=== PATIENT | female | born 1960 | race Caucasian/White ===

== ENCOUNTER 2016-11-13 08:43 | Inpatient (IN) | payer MEDICAID ==
[~2016-11-13 08:43] MED LIST: BUPIVACAINE/EPI 0.5% 30 ML SDV ONE; ceFAZolin 2 GM/DEXTROSE 100 ML IV ONE
[2016-11-13] MEDS ORDERED: LIDOCAINE 1% 5 ML SDV ID PRN (09:19)
[2016-11-13] MEDS ORDERED: LR 1,000 ML IV ONE (09:19)
[2016-11-13 09:43] LABS: % IMMATURE GRANULYOCYTES 0.3 % (0.0-1.1); ABSOLUTE IMMATURE GRANULOCYTES 0.03 10^3/uL (0.00-0.10); ADD DIFF? NO; ADD MORPH? NO; ADD SCAN? NO; ATYPICAL LYMPHOCYTE FLAG 0 (0-99); FRAGMENT RBC FLAG 0 (0-99); HEMATOCRIT 39.8 % (38.0-47.0); HEMOGLOBIN 13.9 g/dL (12.6-16.3); LEFT SHIFT FLG 0 (0-99); LIPEMIA HEMOLYSIS FLAG 90 (0-99); MEAN CELL HEMOGLOBIN 31.3 pg (27.9-34.1); MEAN CELL HEMOGLOBIN CONCENTR. 34.9 g/dL (32.4-36.7); MEAN CELL VOLUME 89.6 fL (81.5-99.8); MEAN PLATELET VOLUME 9.6 fL (8.7-11.7); PLATELET CLUMPS FLAG 0 (0-99); PLATELET COUNT 283 10^3/uL (150-400); RED BLOOD CELL COUNT 4.44 10^6/uL (4.18-5.33); RED CELL DISTRIBUTION WIDTH 13.4 % (11.5-15.2)
[2016-11-13] MEDS ORDERED: CEFAZOLIN 2 GM/DEXTROSE/100 ML BAG IV ONE (10:37)
[2016-11-13] MEDS ORDERED: PROPOFOL 200 MG/20 ML VIAL ONE (11:17)
[2016-11-13] MEDS ORDERED: fentaNYL 100 MCG/2 ML INJ ONE ×3 (11:17→17:39)
[2016-11-13] MEDS ORDERED: ROCURONIUM 50 MG/5 ML VIAL ONE (11:18)
[2016-11-13] MEDS ORDERED: LIDOCAINE 2% 100 MG/5 ML SYR IVP ONE (11:18)
[2016-11-13] MEDS ORDERED: MIDAZOLAM 2 MG/2 ML VIAL ONE (12:00)
[2016-11-13] MEDS ORDERED: DEXAMETHASONE 4 MG/ML VIAL ONE (15:10)
[2016-11-13] MEDS ORDERED: SUGAMMADEX SODIUM 200 MG/2 ML VIAL IVP ONE (15:10)
[2016-11-13] MEDS ORDERED: ONDANSETRON 4 MG/2 ML VIAL ONE (15:10)
[2016-11-13] MEDS ORDERED: HYDROmorphONE/DILAUDID 2 MG/ML SYR ONE ×2 (15:13→15:44)
[2016-11-13] MEDS ORDERED: ONDANSETRON 4 MG/2 ML VIAL IVP PRN (15:43)
[2016-11-13] MEDS ORDERED: NARCOTIC DRIP BAG-TOTAL ALL TYPES EP PRN (15:43)
[2016-11-13] MEDS ORDERED: NALOXONE HCL 0.4 MG/ML INJ IVP PRN (15:43)
[2016-11-13] MEDS ORDERED: D5W 1/2 NS W/ 20 KCl/L 1,000 ML IV SCH (16:00)
--- NOTE | 2016-11-13 16:06 | POSTOPPROG ---
Post Op Note Date of Operation: 11/13/16 Surgeon: Naga Pollard Mica Inspector: Robin Gutierrez Anesthesiologist: Dr Youssef Anesthesia: Epidural, GET(General Endotracheal) Pre-op Diagnosis: right lung mass Post-op Diagnosis: same Indication: right lung mass Procedure: VATS, right thoracotomy, right upper lobectomy, lypmh node biopsy Findings: right lung mass Inf/Abcess present in the surg proc area at time of surgery?: No EBL: 100-500 Drains: Other (2 chest tubes) Specimen(s): right lung mass, hilar nodes, right upper lobe
--- NOTE | 2016-11-13 16:16 | DX ---
Portable AP chest. 11/13/2016 at 1603 History: s/p right thoracotomy, 2 chest tubes Comparison study: Chest CT September 11, 2016. Findings: Surgical features of a right upper lobectomy are identified with 2 right thoracostomy tubes and volume loss in the right hemithorax. Small right apical pneumothorax is present. There is centra l opacity within the right lung which may represent postsurgical hematoma or atelectasis. Minimal ate lectasis of the left lower lobe. Heart size is normal. No significant pleural effusion. Impression: Status post right upper lobectomy with central atelectasis/hematoma and small right apica l pneumothorax. [address] tubes in place.
[2016-11-13] MEDS ORDERED: HYDROmorphONE/DILAUDID 1 MG/ML SYR ONE (17:34)
[2016-11-13] MEDS ORDERED: fentaNYL 100 MCG/2 ML INJ IVP PRN (17:41)
[2016-11-13] MEDS: CYCLOSPORINE 0.05% 1 EACH BOX EACHEYE SCH (17:50)
[2016-11-13] MEDS: HYDROmorphONE/DILAUDID 1 MG/ML SYR IVP PRN ×2 (17:51→18:14)
[2016-11-13] MEDS: NICOTINE 14 MG/24 HR PATCH TD SCH (18:15)
[2016-11-13] MEDS: ONDANSETRON 4 MG/2 ML VIAL IVP PRN (18:24)
--- NOTE | 2016-11-13 19:35 | POSTANESTH ---
Post Anesthetic Evaluation Cardiovascular Status: Normal, Stable Respiratory Status: Normal, Stable Level of Consciousness/Mental Status: Can Participate in Eval Pain Control: Inadeq, Add Tx Required Nausea/Vomiting Control: Adequate, Prn Tx Ordered Complications Possibly Related to Anesthesia: None Noted Notes: POD#0 Called to bedside- epidural catheter dislodged. Likely during multiple repositioning events. Replaced catheter T7-8 interspace. TITA 6, catheter at 11 cm at skin. Dosed with 5 cc lidocaine 2%. Level tests T4-L2. Pt much more comfortable.
[2016-11-13] MEDS ORDERED: ALPRAZolam 0.5 MG TAB PO SCH (21:00)
[2016-11-13] MEDS ORDERED: LORazepam 0.5 MG TAB PO SCH (21:00)
[2016-11-14] MEDS: HYDROmorphONE/DILAUDID 1 MG/ML SYR IVP PRN ×3 (04:38→22:16)
[2016-11-14 04:50] LABS: HEMATOCRIT 33.5 % (38.0-47.0); HEMOGLOBIN 11.2 g/dL (12.6-16.3)
[2016-11-14] MEDS: NICOTINE 14 MG/24 HR PATCH TD SCH (07:40)
[2016-11-14] MEDS ORDERED: KETOROLAC 30 MG/1 ML SDV IVP ONE (08:30)
[2016-11-14] MEDS ORDERED: LORazepam 0.5 MG TAB PO PRN (08:31)
[2016-11-14] MEDS: CYCLOSPORINE 0.05% 1 EACH BOX EACHEYE SCH (08:35)
[2016-11-14] MEDS: REGARDING ANTICOAG MISC SCH (08:36)
[2016-11-14] MEDS: DC NARCS MISC SCH (08:36)
--- NOTE | 2016-11-14 09:20 | DX ---
Chest, One View Portable November 14, 2016, at 0618 Hours History: Right chest tubes and pneumothorax. Right thoracotomy. Comparison: November 13, 2016. Findings: Two chest tubes in the right lung apex. Small right apical pneumothorax possibly slightly increased in size. Right inferolateral chest wall skin tommy. Tenting of the right hemidiaphragm. R ight pericardiac density appears less prominent suggesting improved aeration of the right lung. Surgi lore clips in the right suprahilar region. Left lung is clear. Heart is normal in size. Resolving left lower lobe subsegmental atelectasis. Impression: 1. Small right apical pneumothorax possibly slightly increased in size. 2. Improved aeration of the remaining right lung.
[2016-11-14] MEDS: KETOROLAC 15 MG/1 ML SDV IVP SCH ×2 (11:09→17:12)
[2016-11-14] MEDS: ALBUTEROL 3 ML DEYVIAL IH SCH ×3 (12:18→22:31)
--- NOTE | 2016-11-14 13:08 | SOAPPROG ---
SOAP Progress Note Assessment/Plan: Assessment: 55yo female s/p R upper lobe lobectomy, cancer positive, full path pending. Epidural placed again last evening after became dislodged. Pain control better after new epidural last night. tolerating regular diet. PE awake alert comfortable Chest 2 right sided chest tubes in place, leak present, CTA B/L abdomen soft nontender Plan: continue chest tubes to suction continue epidural per anesthesia 11/14/16 13:05 Objective: Vital Signs Temp Pulse Resp BP Pulse Ox 36.9 C 99 20 98/44 L 97 11/14/16 07:00 11/14/16 11:00 11/14/16 11:00 11/14/16 11:00 11/14/16 11:00 Laboratory Results 11/14/16 04:40 11/13/16 11/14/16 11/15/16 05:59 05:59 05:59 Intake Total 2721.9 Output Total 2013 Balance 707.9 ICD10 Worksheet Patient Problems: Problems Problem Status Diagnosed Lung cancer Acute - ICD10 Problem Qualifiers (1) Lung cancer
[2016-11-14] MEDS: ONDANSETRON 4 MG/2 ML VIAL IVP PRN (19:33)
[2016-11-14] MEDS: fentaNYL 4MCG/ML/BUP 0.1% in 100ML NS EP SCH (22:17)
[2016-11-15] MEDS: KETOROLAC 15 MG/1 ML SDV IVP SCH ×4 (00:19→18:00)
[2016-11-15] MEDS: ALBUTEROL 3 ML DEYVIAL IH SCH ×4 (05:55→20:37)
[2016-11-15] MEDS: HYDROmorphONE/DILAUDID 1 MG/ML SYR IVP PRN (06:13)
--- NOTE | 2016-11-15 09:28 | SOAPPROG ---
SOAP Progress Note Assessment/Plan: Assessment: 55 yo F POD#2 s/p thoracotomy and RUL lobectomy Path pending Epidural. Begin lovenox - this will need to be held for epidural removal ( likely thursday) R chest tube with persistent air leak. To suction CXR tomorrow Pain controlled Aggressive pulmonary hygiene - IS, PT Regular diet Seen with Dr. Pollard S: has not attempted to get out of bed. Pain is controlled. O: Lying in bed, comfortable, NAD CTAB RRR Right chest dressing intact Right chest tube with serosanguineous fluid. Positive air leak Objective: Vital Signs Temp Pulse Resp BP Pulse Ox 37.3 C 83 23 H 120/48 L 95 11/14/16 20:00 11/15/16 06:00 11/15/16 06:00 11/15/16 06:00 11/15/16 06:00 Laboratory Results 11/14/16 04:40 11/14/16 11/15/16 11/16/16 05:59 05:59 05:59 Intake Total 2721.9 3514.1 Output Total 2013 2489 Balance 707.9 1024.1 ICD10 Worksheet Patient Problems: Problems Problem Status Diagnosed Lung cancer Acute
--- NOTE | 2016-11-15 09:47 | POSTANESTH ---
Post Anesthetic Evaluation Cardiovascular Status: Normal, Stable, Similar to Pre-Op Cond Respiratory Status: Normal, Stable, Similar to Pre-op Cond. Level of Consciousness/Mental Status: Can Participate in Eval Pain Control: Adequate, Prn Tx Ordered Nausea/Vomiting Control: Adequate, Prn Tx Ordered Complications Possibly Related to Anesthesia: None Noted Notes: POD 2 s/p thoracotomy. PCEA day 2. Pain control is good. Back site c/d/i, no e/e/e. Pt notes one episode of pruritis which responded well to benadryl. Plan Continue PCEA as ordered. Maintain PCEA while chest tubes are in place, will hold infusion and then D/C after pt transitions to PO meds. Pt with good LE strength, may ambulate with assistance. May d/c vazquez. Please hold lovenox 12 hr prior to planned catheter discharge. Thank you for this interesting consult, please call with any questions or concerns.
[2016-11-15] MEDS: D5W 1/2 NS W/ 20 KCl/L 1,000 ML IV SCH ×2 (10:18→22:13)
[2016-11-15] MEDS: CYCLOSPORINE 0.05% 1 EACH BOX EACHEYE SCH (10:19)
[2016-11-15] MEDS: ENOXAPARIN 40 MG/0.4 ML SYR SC SCH (10:19)
[2016-11-15] MEDS: DC NARCS MISC SCH (10:20)
[2016-11-15] MEDS: REGARDING ANTICOAG MISC SCH (10:20)
[2016-11-15] MEDS: NICOTINE 14 MG/24 HR PATCH TD SCH (10:20)
--- NOTE | 2016-11-15 14:53 | GOP ---
[f rep st] OPERATIVE REPORT DATE OF OPERATION: SURGEON: Naga Pollard MD [employer] DEVELOPER: Robin Lovett PA-C and Herrera Novoa MD. ANESTHESIOLOGIST: Dr. Youssef. PREOPERATIVE DIAGNOSIS: A right enlarging lung mass. POSTOPERATIVE DIAGNOSIS: Adenocarcinoma of the right upper lobe. PROCEDURE PERFORMED: 1. Thoracoscopy and wedge biopsy right upper lobe. 2. Thoracotomy and right upper lobectomy. 3. Hilar lymphadenectomy. FINDINGS: Patient was found to have a 1 cm mass in the upper lobe, which was consistent with adenoca rcinoma. Multiple lymph nodes in the area appeared to be benign. Final path is pending. DESCRIPTION OF PROCEDURE: The patient was taken to the operating room where she received satisfactor y general endotracheal anesthesia with a double-lumen endotracheal tube. This was done by Dr. Youssef. She was placed in the left lower decubitus position, prepped and draped in usual sterile fashion. A short incision was made in the 7th intercostal space in the midline, and a trocar was introduced. The thoracoscope was introduced. Adequate visualization was present with the wound being collapsed. Two other trocars were placed higher up in the right chest wall. The lung was then manipulated; how ever, it was impossible to find this 1 cm mass which did not pucker the surface of the lung. It coul d not be palpated with the laparoscopic instruments. A short mini thoracotomy incision was made in t he 4th intercostal space. A small rib airport ramp supervisor was used. The upper lobe of the lung was palpated as was the superior segment of the lower lobe, and a small nodule was palpable near the fissure between the superior segment and the upper lobe. A wedge biopsy was taken of this nodule using Endo-CORRINE sta plers. This was sent for frozen section and was returned as adenocarcinoma. It was then elected to proceed with a right upper lobectomy. The incision was somewhat enlarged. A larger rib airport ramp supervisor was used. The pleura over the hilum was incised, and the anterior vessels to the right upper lobe were dissected free and isolated and divided with a vascular stapler. The fissure was developed between t he lower lobe and the upper lobe and branches to the lower lobe were preserved. The posterior branch es to the upper lobe were isolated and divided. Vessels to the middle lobe were also preserved. The fissures were completed by division with the CORRINE staplers. A portion of the superior segment was ta linnette with the upper lobe since they were somewhat fused together near where the tumor was. After the arterial supply was controlled, the upper lobe vein was dissected free and divided with an Endo-CORRINE s tapler, preserving the venous flow to the middle lobe. All other connections between the lobes were then divided with a stapler until the bronchus was the only remaining structure. This was cross clam ped, and there was good visualization of the middle and lower lobes. It too was then divided with [facility] CORRINE stapler. The specimen was removed. Suture lines were tested under water, and the bronchus enrique eared to be air tight. There was a small parenchymal leak from the lung near one of the fissures, wh ich was controlled with some hemoclips. The wound was thoroughly irrigated. Hemostasis was assured. Several hilar and interlobar nodes were dissected free and sent out for path on a permanent basis. Hemostasis there was obtained with electrocautery and/or hemoclips. Chest was then closed in a meliza dard fashion. Two #28 chest tubes were brought in through the previous trocar sites and secured to [facility] skin with silk suture. Holes were drilled in the lower rib, and pericostal sutures were passed th rough these holes and around the upper rib which was then approximated with the rib approximator tania zuleyma. Sutures were tied. Hemostasis appeared to be adequate. The muscular layers were then sutured c losed with 0 Vicryl suture approximating the split in the serratus muscle and a small portion of the latissimus muscle that had been divided. Subcu was then closed with a running 2-0 Vicryl, and the sk in with skin tommy. The wounds were dressed. She tolerated the procedure well and was taken to [facility] recovery room in good condition. /[id number]/MODL
--- NOTE | 2016-11-15 19:04 | GCON ---
[f rep st] CONSULTATION PULMONARY CRITICAL CARE CONSULTATION. REASON FOR CONSULTATION: Intensive care unit evaluation and management following a right upper lobec roxy. HISTORY: The patient is known to me from the office. She presented with an enlarging pulmonary nodu le in the right upper lobe suspicious for lung cancer. She was referred to Dr. Pollard. Right upper l obectomy was performed on November 13 and was without significant complications. Thoracotomy and righ t upper lobectomy was done, hilar lymphadenopathy was noted, biopsies were obtained. The primary was consistent with adenocarcinoma on frozen sections and lymph nodes appeared to be biopsied . She was returned to the intensive care unit in stable condition. She has done well postoperatively. Pain i s her main issue postop. She is on 2 L. She has been afebrile. She does have a loose cough product christopher of whitish mucus. PAST MEDICAL HISTORY: Largely unremarkable. She has some anxiety. She was on Xanax p.r.n. and iram zepam to help her sleep at night. DRUG ALLERGIES: VARENICLINE TARTRATE. FAMILY HISTORY: Positive for A GI malignancy in her father. SOCIAL HISTORY: , she started smoking at 15 and was smoking up to the time of admission. Sig nificant alcohol is denied. REVIEW OF SYSTEMS: Negative except as mentioned above. PHYSICAL EXAMINATION: GENERAL: Reveals a pleasant woman who is sitting up in a chair. Chest tubes are in place on the right side. A small air leak is present. VITAL SIGNS: Blood pressure is 110/50, heart rate 80 with sinus rhythm on the monitor. Respiratory rate is 20. On 2 L, saturations are 95%. She is afebrile. HEENT: Remarkable for the nasal cannula being in place. Mucous membranes are moist. There is no jugular venous distention. PULMONARY: Th e chest reveals coarse breath sounds and rales on the right side, a few rales at the left base. Ther e is some central airway congestion. HEART: Regular in rate and rhythm, without significant murmur or gallop. ABDOMEN: Soft, nontender. Bowel sounds are present. : A Gottlieb catheter is in place. Urine output has been good. NEUROLOGIC: Examination is nonfocal, intact. EXTREMITIES: Without e stacy, cords, or tenderness. DATA BASE: Chest x-ray yesterday showed a very small persistent right apical pneumothorax with some volume loss on the right. The left lung is clear. Chest tubes were in good position. LABORATORY: White blood cell count 11,000 on admission, hematocrit 39, down to 33 yesterday. Platel ets are within normal limits. No chemistries obtained. Final pathology is pending. ASSESSMENT: 1. Adenocarcinoma of the right upper lobe, status post resection. Formal pathology is pending. 2. Chest pain, secondary to #1. Two chest tubes are in place. She is doing well, progressing well. Pain is appropriately managed. 3. Acute blood-loss anemia. Hematocrit will be followed. No significant ongoing bleeding is noted. 4. DVT prophylaxis: On enoxaparin. 5. GI prophylaxis: None required, eating. PLAN AND RECOMMENDATIONS: The patient will be monitored in the intensive care unit. Followup x-ray and laboratory values will be obtained in the a.m. She can transition to step-down unit status and w ill be kept in the intensive care unit. Appropriate pain control will be maintained. Current medici jessica will be continued. Further plans and recommendations will be made based on her progress over the next 12 to 24 hours. /[id number]/MODL
[2016-11-15] MEDS: ONDANSETRON 4 MG/2 ML VIAL IVP PRN (20:56)
[2016-11-16] MEDS: KETOROLAC 15 MG/1 ML SDV IVP SCH ×5 (01:50→23:14)
[2016-11-16] MEDS: HYDROmorphONE/DILAUDID 1 MG/ML SYR IVP PRN (03:00)
[2016-11-16] MEDS: fentaNYL 4MCG/ML/BUP 0.1% in 100ML NS EP SCH ×3 (04:05→23:15)
[2016-11-16] MEDS: D5W 1/2 NS W/ 20 KCl/L 1,000 ML IV SCH (04:05)
[2016-11-16 04:27] LABS: % IMMATURE GRANULYOCYTES 0.4 % (0.0-1.1); ABSOLUTE IMMATURE GRANULOCYTES 0.03 10^3/uL (0.00-0.10); ADD DIFF? NO; ADD MORPH? NO; ADD SCAN? NO; ATYPICAL LYMPHOCYTE FLAG 0 (0-99); FRAGMENT RBC FLAG 0 (0-99); HEMATOCRIT 30.5 % (38.0-47.0); HEMOGLOBIN 10.1 g/dL (12.6-16.3); LEFT SHIFT FLG 0 (0-99); LIPEMIA HEMOLYSIS FLAG 80 (0-99); MEAN CELL HEMOGLOBIN 32.3 pg (27.9-34.1); MEAN CELL HEMOGLOBIN CONCENTR. 33.1 g/dL (32.4-36.7); MEAN CELL VOLUME 97.4 fL (81.5-99.8); MEAN PLATELET VOLUME 9.7 fL (8.7-11.7); PLATELET CLUMPS FLAG 0 (0-99); PLATELET COUNT 175 10^3/uL (150-400); RED BLOOD CELL COUNT 3.13 10^6/uL (4.18-5.33); RED CELL DISTRIBUTION WIDTH 13.3 % (11.5-15.2)
[2016-11-16 04:46] LABS: ANION GAP 4 mEq/L (8-16); CALCIUM 8.2 mg/dL (8.5-10.4); CARBON DIOXIDE 26 mEq/l (22-31); CHLORIDE 107 mEq/L (97-110); CREATININE 0.7 mg/dL (0.6-1.0); GLOMERULAR FILTRATION RATE > 60; GLUCOSE 127 mg/dL (70-100); MAGNESIUM 1.7 mg/dL (1.6-2.3); POTASSIUM 5.2 mEq/L (3.5-5.2); SODIUM 137 mEq/L (134-144)
[2016-11-16] MEDS: ALBUTEROL 3 ML DEYVIAL IH SCH ×4 (05:37→20:01)
--- NOTE | 2016-11-16 08:36 | DX ---
Portable AP chest. 11/16/2016 at 6:17 AM History: s/p RUL lobectomy, R chest tube Comparison study: November 14, 2016 Findings: Surgical features of a right upper lobectomy are again noted, with 2 right chest tubes in p lace, and small right apical pneumothorax. Patchy consolidation central right lung is stable. Left lung is clear. Heart size is normal. Impression: Stable chest post right upper lobectomy.
[2016-11-16] MEDS: CYCLOSPORINE 0.05% 1 EACH BOX EACHEYE SCH (09:18)
[2016-11-16] MEDS: ENOXAPARIN 40 MG/0.4 ML SYR SC SCH ×2 (09:19→10:24)
[2016-11-16] MEDS: NICOTINE 14 MG/24 HR PATCH TD SCH ×2 (09:19→09:22)
[2016-11-16] MEDS: DC NARCS MISC SCH (09:20)
[2016-11-16] MEDS: REGARDING ANTICOAG MISC SCH (09:20)
--- NOTE | 2016-11-16 10:30 | SOAPPROG ---
SOAP Progress Note Assessment/Plan: Assessment: 55 yo F POD#3 s/p thoracotomy and RUL lobectomy Path pending Pain control - Epidural. Hold lovenox 12h prior to planned epidural removal CXR with R apical ptx. Continue CT to suction Air leak resolved today Aggressive pulmonary hygiene - IS, cough/deep breath, PT Regular diet Seen with Dr. Novoa S: Up to the chair several times yesterday. Pain in the right shoulder, which she had prior to surgery. getting IS to 750 O: Lying in bed, comfortable, NAD Clear anteriorly RRR right chest incision clean, dry and intact without evidence of infection Right chest tube with serosanguineous fluid. no evidence of air leak today Objective: Vital Signs Temp Pulse Resp BP Pulse Ox 37.3 C 77 18 91/52 L 98 11/16/16 08:00 11/16/16 08:00 11/16/16 08:00 11/16/16 08:00 11/16/16 08:00 Laboratory Results 11/16/16 04:21 11/16/16 04:21 11/15/16 11/16/16 11/17/16 05:59 05:59 05:59 Intake Total 3514.1 3160.1 535 Output Total 4590 9965 Balance 1024.1 -194.9 535 ICD10 Worksheet Patient Problems: Problems Problem Status Diagnosed Lung cancer Acute
[2016-11-16] MEDS: NS 1,000 ML IV SCH (10:31)
--- NOTE | 2016-11-16 12:43 | SOAPPROG ---
SOAP Progress Note Assessment/Plan: Assessment: Right upper lobe lesion: adenocarcinoma. Status post right upper lobectomy. Final pathology pending. COPD: Mild. On albuterol. Postoperative chest pain, epidural catheter in place. DVT prophylaxis: Enoxaparin. Will need to be held prior to pulling epidural, probably on Thursday. Metabolic: Potassium rising, will DC from IV. Anemia: Blood loss plus dilutional. Hematocrit 30. No evidence of significant ongoing bleeding. Plan: Continue present care. Chest tubes to suction. Pain control as needed. To a medical-surgical bed when okay with surgery. Subjective: Doing okay. Chest pain persists on the right. Denies significant shortness of breath. Some cough, not able to clear any mucus. Objective: Vital Signs Temp Pulse Resp BP Pulse Ox 37.3 C 86 23 H 112/60 96 11/16/16 08:00 11/16/16 12:00 11/16/16 12:00 11/16/16 12:00 11/16/16 12:00 Laboratory Results 11/16/16 04:21 11/16/16 04:21 11/15/16 11/16/16 11/17/16 05:59 05:59 05:59 Intake Total 3514.1 3160.1 535 Output Total 2490 3355 Balance 1024.1 -194.9 535 CXR: Chest tubes remain in place. Small apical pneumothorax is present, postop changes elsewhere. Physical Exam - Physical Exam General Appearance: alert, no apparent distress EENT: other (Nasal cannula at 3 L) Neck: normal inspection Respiratory: decreased breath sounds (On the right side), rales (Rales at right base), pleural rub (Soft, on the right), other (Chest tubes hooked to suction on the right. No air leak. Decreased drainage), No rhonchi, No wheezing Cardiac/Chest: regular rate, rhythm Abdomen: normal bowel sounds, non-tender, soft Pelvic Exam: other (Gottlieb catheter in place, good urine output) Back: Other (Epidural catheter in place) Skin: normal color, warm/dry Extremities: pedal edema (Trace) Neuro/Psych: no motor/sensory deficits, No cognition abnormalities ICD10 Worksheet Patient Problems: Problems Problem Status Diagnosed Lung cancer Acute
[2016-11-16] MEDS: diphenhydrAMINE 25 MG CAP PO PRN (20:28)
[2016-11-16] MEDS: ALPRAZolam 0.25 MG TAB PO PRN (21:17)
--- NOTE | 2016-11-16 21:34 | POSTANESTH ---
Post Anesthetic Evaluation Cardiovascular Status: Normal, Stable, Similar to Pre-Op Cond Respiratory Status: Normal, Stable, Similar to Pre-op Cond. Level of Consciousness/Mental Status: Can Participate in Eval, Alert and Oriented Pain Control: Adequate, Prn Tx Ordered Nausea/Vomiting Control: Adequate, Prn Tx Ordered Complications Possibly Related to Anesthesia: None Noted Notes: Pt seen and examined. Pain control excellent. C/O R shoulder pain, same as pre -operative discomfort related to rotator cuff injury. Able to ambulate and OOB most of the afternoon. Back site c/d/i, no e/e/e. Denies n/v, pruritis. Plan to continue PCEA until planned CT d/c. Will hold infusion in am=, transition to PO meds and d/c catheter that afternoon. Please hold lovenox 12 hrs prior to planned removal. Thanks for this interesting consult, please don't hesitate to call with any questions or concerns.
[2016-11-17 04:28] LABS: POTASSIUM 4.9 mEq/L (3.5-5.2)
[2016-11-17] MEDS: ALBUTEROL 3 ML DEYVIAL IH SCH ×4 (06:02→21:57)
[2016-11-17] MEDS: KETOROLAC 15 MG/1 ML SDV IVP SCH ×4 (06:12→23:33)
[2016-11-17] MEDS: ERTAPENEM 1 GM in NS 100 ML IV SCH (08:09)
[2016-11-17] MEDS: ENOXAPARIN 40 MG/0.4 ML SYR SC SCH (08:09)
[2016-11-17] MEDS: DC NARCS MISC SCH (08:13)
[2016-11-17] MEDS: NICOTINE 14 MG/24 HR PATCH TD SCH (08:13)
[2016-11-17] MEDS: REGARDING ANTICOAG MISC SCH (08:13)
--- NOTE | 2016-11-17 08:46 | DX ---
Portable AP Upright Chest, 6:08 AM on November 17, 2016 Clinical History: 55-year-old female who underwent a right upper lobectomy and presents for follow-up of chest tube positioning and pneumothorax. Comparison Study: Chest, dated November 16, 2016, at 6:17 AM. Findings: The patient has undergone a right upper lobectomy, and there are thoracotomy skin tommy a long the inferolateral right hemithorax with subcutaneous emphysema. One of the two chest tubes has b een advanced slightly more cephalad into the right apex. There is a small residual right apical pneum othorax. The trachea is slightly deviated to the right, consistent with volume loss. There is a mild upper dextrothoracic curvature. The cardiac size is stable. There is some left basilar subsegmental a telectasis. Impression: Postoperative features following a right upper lobectomy with more pronounced right-sided subcutaneous emphysema, interval repositioning of one of the two chest tubes, and a small residual r ight apical pneumothorax persisting.
--- NOTE | 2016-11-17 09:12 | PDINTPN ---
Rheumatologist Progress Note Assessment/Plan: Assessment/Plan: * Right upper lobe lesion: adenocarcinoma. Status post right upper lobectomy. Final pathology pending. * COPD: Mild. On albuterol. * Postoperative chest pain, epidural catheter in place. * DVT prophylaxis: Enoxaparin. Will need to be held prior to pulling epidural , probably on Thursday. * Metabolic: Potassium rising, will DC from IV. * Pain-okay * Anemia: Blood loss plus dilutional. Hematocrit 30. No evidence of significant ongoing bleeding. * Left basilar atelectasis vs pna -started on abx this am -aggressive pulmonary toilet Subjective: Resting. Pain okay. Breathing easily. Objective: Vital Signs Temp Pulse Resp BP Pulse Ox 37.0 C 81 22 H 114/60 95 11/17/16 07:41 11/17/16 07:41 11/17/16 07:41 11/17/16 07:41 11/17/16 07:41 Laboratory Results 11/16/16 04:21 11/17/16 03:50 11/16/16 11/17/16 11/18/16 05:59 05:59 05:59 Intake Total 3160.1 2189 Output Total 3355 2570 Balance -194.9 -381 CXR-reviewed by myself. Right post-surgical changes. Left basilar atelectasis vs pna Physical Exam - Physical Exam General Appearance: alert, mild distress EENT: PERRL/EOMI, normal ENT inspection Neck: non-tender, full range of motion, supple, normal inspection Respiratory: crackles (bibasilar), prolonged expiration, No respiratory distress , No wheezing Cardiac/Chest: normal peripheral pulses, regular rate, rhythm Peripheral Pulses: 2+: carotid (R), carotid (L), femoral (R), femoral (L), dorsalis-pedis (R), dorsalis-pedis (L) Abdomen: normal bowel sounds, non-tender, soft Pelvic Exam: deferred Rectal: deferred Skin: normal color, warm/dry Neuro/Psych: no motor/sensory deficits, alert, normal mood/affect, oriented x 3 ICD10 Worksheet Patient Problems: Problems Problem Status Diagnosed Lung cancer Acute
[2016-11-17] MEDS: HYDROmorphONE/DILAUDID 1 MG/ML SYR IVP PRN ×2 (10:14→17:57)
[2016-11-17] MEDS: CYCLOSPORINE 0.05% 1 EACH BOX EACHEYE SCH (10:22)
[2016-11-17] MEDS: fentaNYL 4MCG/ML/BUP 0.1% in 100ML NS EP SCH ×2 (11:53→19:39)
--- NOTE | 2016-11-17 12:49 | SOAPPROG ---
SOAP Progress Note Assessment/Plan: Assessment/Plan: 55 Y F s/p RUL lobectomy. Chest tubes still draining. No air leak. Continue to suction. Atelectasis vs PNA. Abx started this am. Respiratory therapy seeing pt. Pulm toilet. Smoking cessation. Pt using nicotine lozenges. Pathology. Final pending. Appears to be adenocarcinoma. Dispo: pending. S: Not much pain or SOB. Says she gets up and walks in room and has sat in chair. No BM. O: gen: alert nad heent: mmm chest: bibasilar crackles cor: rrr abd: soft Wounds: well dressed no air leak 11/17/16 12:49 Objective: Vital Signs Temp Pulse Resp BP Pulse Ox 37.7 C 86 20 124/51 H 94 11/17/16 11:59 11/17/16 11:59 11/17/16 11:59 11/17/16 11:59 11/17/16 11:59 Laboratory Results 11/16/16 04:21 11/17/16 03:50 11/16/16 11/17/16 11/18/16 05:59 05:59 05:59 Intake Total 3160.1 2189 Output Total 3355 2570 Balance -194.9 -381 ICD10 Worksheet Patient Problems: Problems Problem Status Diagnosed Lung cancer Acute
[2016-11-17] MEDS ORDERED: POLYETHYLENE GLYCOL 3350 17 GM PKT PO PRN (12:51)
[2016-11-17] MEDS ORDERED: BISACODYL 10 MG SUPP PR PRN (12:51)
[2016-11-17] MEDS ORDERED: LACTULOSE 20 GM/30 ML UDCUP PO PRN (12:51)
[2016-11-17] MEDS ORDERED: MAGNESIUM HYDROXIDE 30 ML UDCUP PO PRN (12:51)
[2016-11-17] MEDS: ACETAMINOPHEN 325 MG TAB PO PRN (18:09)
[2016-11-17 19:01] LABS: COLOR YELLOW; LEUKOCYTE ESTERASE,URINE 3+ (NEGATIVE); NITRITE,URINE POSITIVE (NEGATIVE)
[2016-11-17 19:10] LABS: MUCUS 1+ /lpf (NONE-1+); RBC,URINE 50-182 /hpf (0-3); WBC,URINE 50-182 /hpf (0-3)
[2016-11-17] MEDS: NS 1,000 ML IV SCH (19:43)
[2016-11-17] MEDS: ALPRAZolam 0.25 MG TAB PO PRN (20:09)
[2016-11-17] MEDS: SENNOSIDES/DOCUSATE SODIUM TAB PO SCH (20:24)
--- NOTE | 2016-11-17 20:47 | SOAPPROG ---
SOAP Progress Note Assessment/Plan: Assessment: FEVER TODAY IS CONCERNING WITH HER SMOKING HISTORY AND CHANGES ON HER CHEST X- RAY. NO OTHER MAJOR SOURCES OF INFECTION ARE LIKELY AT THIS TIME SHE IS NOT MOVING MUCH DESPITE HAVING AN EPIDURAL FOR PAIN CONTROL Plan: FOLLOW-UP CHEST X-RAY / CULTURES / ANTIBIOTICS / CONTINUE VIGOROUS PULMONARY CARE 11/17/16 20:45 Objective: Vital Signs Temp Pulse Resp BP Pulse Ox 37.9 C 88 17 116/59 L 98 11/17/16 20:00 11/17/16 20:00 11/17/16 20:00 11/17/16 20:00 11/17/16 20:00 Laboratory Results 11/16/16 04:21 11/17/16 03:50 11/16/16 11/17/16 11/18/16 05:59 05:59 05:59 Intake Total 3160.1 2189 2900 Output Total 3355 2570 1375 Balance -194.9 -381 1525 ICD10 Worksheet Patient Problems: Problems Problem Status Diagnosed Lung cancer Acute
[2016-11-18] MEDS: KETOROLAC 15 MG/1 ML SDV IVP SCH ×3 (06:15→18:00)
[2016-11-18] MEDS: ALBUTEROL 3 ML DEYVIAL IH SCH ×4 (08:18→21:09)
[2016-11-18] MEDS: ERTAPENEM 1 GM in NS 100 ML IV SCH (08:45)
[2016-11-18] MEDS: SENNOSIDES/DOCUSATE SODIUM TAB PO SCH ×2 (08:45→21:32)
--- NOTE | 2016-11-18 09:21 | PDINTPN ---
[facility] Progress Note Assessment/Plan: Assessment/Plan: * Right upper lobe lesion: adenocarcinoma. Status post right upper lobectomy. Final pathology pending. * COPD: Mild. On albuterol. * Postoperative chest pain, epidural catheter in place. * DVT prophylaxis: Enoxaparin. Will need to be held prior to pulling epidural , probably on Thursday. * Metabolic: Potassium rising, will DC from IV. * Pain-much improved * Anemia: Blood loss plus dilutional. Hematocrit 30. No evidence of significant ongoing bleeding. * Right basilar atelectasis vs pna -continue abx -aggressive pulmonary toilet * OOB/PT and OT Subjective: Looks and feels much better.Pain okay Objective: Vital Signs Temp Pulse Resp BP Pulse Ox 36.9 C 67 15 107/50 L 98 11/18/16 08:00 11/18/16 08:00 11/18/16 08:00 11/18/16 08:00 11/18/16 08:00 Laboratory Results 11/16/16 04:21 11/17/16 03:50 11/17/16 11/18/16 11/19/16 05:59 05:59 05:59 Intake Total 2189 3855 Output Total 2570 3385 Balance -381 470 Physical Exam - Physical Exam General Appearance: alert, mild distress EENT: PERRL/EOMI, normal ENT inspection, pharynx normal, TMs normal Neck: non-tender, full range of motion, supple, normal inspection Respiratory: crackles (right), No respiratory distress, No wheezing Cardiac/Chest: normal peripheral pulses, regular rate, rhythm, systolic murmur Peripheral Pulses: 2+: carotid (R), carotid (L), femoral (R), femoral (L), dorsalis-pedis (R), dorsalis-pedis (L) Abdomen: normal bowel sounds, non-tender, soft Pelvic Exam: deferred Rectal: deferred Skin: normal color, warm/dry Extremities: normal range of motion, non-tender, normal inspection, normal capillary refill Neuro/Psych: no motor/sensory deficits, alert, normal mood/affect, oriented x 3 ICD10 Worksheet Patient Problems: Problems Problem Status Onset Lung cancer Acute
--- NOTE | 2016-11-18 10:33 | SOAPPROG ---
SOAP Progress Note Assessment/Plan: Assessment/Plan: 55 Y F s/p RUL lobectomy. POD#5. Epidural likely to come out today. Defer to anesthesiology. Lovenox being held. Can d/c vazquez catheter afterwards. Ok to place chest tubes to water seal for walking. Return to suction when back in bed. PNA. Fever overnight. Blood cultures pending. CXR about the same. Invanz started. Continue RT. Emphasized to patient the importance of walking, IS, deep breathing. Smoking cessation. Patient is motivated but has had difficult time in the past. Continue patches and lozenges. Pathology. Final pending. Appears to be adenocarcinoma. Continue step down care today. Maybe to med surg in am if pulmonary status improves. S: Not much pain or SOB. Per RN, refused to work with PT/OT yesterday and didn' t want to get out of bed despite our encouragement. O: gen: alert nad heent: mmm chest: bibasilar crackles cor: rrr abd: soft Wounds: well dressed no air leak 11/18/16 10:28 Objective: Vital Signs Temp Pulse Resp BP Pulse Ox 36.9 C 67 15 107/50 L 98 11/18/16 08:00 11/18/16 08:00 11/18/16 08:00 11/18/16 08:00 11/18/16 08:00 Laboratory Results 11/16/16 04:21 11/17/16 03:50 11/17/16 11/18/16 11/19/16 05:59 05:59 05:59 Intake Total 2498 5245 Output Total 4807 2974 Balance -381 470 ICD10 Worksheet Patient Problems: Problems Problem Status Onset Lung cancer Acute
[2016-11-18] MEDS: HYDROmorphONE/DILAUDID 1 MG/ML SYR IVP PRN (10:37)
[2016-11-18] MEDS: CYCLOSPORINE 0.05% 1 EACH BOX EACHEYE SCH (12:28)
[2016-11-18] MEDS: NICOTINE 14 MG/24 HR PATCH TD SCH (12:28)
[2016-11-18] MEDS: VIT C 500 MG PO SCH (12:35)
[2016-11-18] MEDS: MULTIVITAMIN PO SCH (12:36)
[2016-11-18] MEDS: DC NARCS MISC SCH (12:38)
[2016-11-18] MEDS: REGARDING ANTICOAG MISC SCH (12:39)
[2016-11-18] MEDS: ALPRAZolam 0.25 MG TAB PO PRN (17:26)
[2016-11-18] MEDS: fentaNYL 100 MCG/2 ML INJ IVP PRN (18:28)
[2016-11-18] MEDS: fentaNYL 75 MCG PATCH TD SCH (18:29)
[2016-11-18] MEDS: ACETAMINOPHEN 325 MG TAB PO PRN (21:50)
[2016-11-18] MEDS: ENOXAPARIN 40 MG/0.4 ML SYR SC SCH (21:58)
[2016-11-19] MEDS: fentaNYL 100 MCG/2 ML INJ IVP PRN ×2 (00:25→04:30)
[2016-11-19] MEDS: ALPRAZolam 0.25 MG TAB PO PRN ×3 (00:26→21:00)
[2016-11-19] MEDS: KETOROLAC 15 MG/1 ML SDV IVP SCH ×2 (00:26→06:23)
[2016-11-19] MEDS: HYDROCODONE/APAP 5/325 TAB PO PRN ×4 (04:29→18:22)
[2016-11-19] MEDS: ALBUTEROL 3 ML DEYVIAL IH SCH ×4 (04:44→20:15)
[2016-11-19] MEDS: ERTAPENEM 1 GM in NS 100 ML IV SCH (09:10)
[2016-11-19] MEDS: CYCLOSPORINE 0.05% 1 EACH BOX EACHEYE SCH (09:10)
[2016-11-19] MEDS: MULTIVITAMIN PO SCH (09:11)
[2016-11-19] MEDS: NICOTINE 14 MG/24 HR PATCH TD SCH (09:11)
[2016-11-19] MEDS: VIT C 500 MG PO SCH (09:11)
[2016-11-19] MEDS: ENOXAPARIN 40 MG/0.4 ML SYR SC SCH (09:12)
[2016-11-19] MEDS: SENNOSIDES/DOCUSATE SODIUM TAB PO SCH ×2 (09:13→21:08)
--- NOTE | 2016-11-19 09:20 | PDINTPN ---
[facility] Progress Note Assessment/Plan: Assessment/Plan: * Right upper lobe lesion: adenocarcinoma. Status post right upper lobectomy. -continue CT * COPD: Mild. On albuterol. * Postoperative chest pain, epidural catheter out * DVT prophylaxis: Enoxaparin. Will need to be held prior to pulling epidural , probably on Thursday. * Metabolic: Potassium rising, will DC from IV. * Pain-much improved * Anemia: Blood loss plus dilutional. Hematocrit 30. No evidence of significant ongoing bleeding. * Right basilar atelectasis vs pna -continue abx -aggressive pulmonary toilet * OOB/PT and OT * Dispo-likely okay for floor Subjective: Up in chair. Comfortable. Pain okay Objective: Vital Signs Temp Pulse Resp BP Pulse Ox 36.3 C 65 17 113/53 L 98 11/19/16 07:50 11/19/16 07:50 11/19/16 07:50 11/19/16 07:50 11/19/16 07:50 Laboratory Results 11/16/16 04:21 11/17/16 03:50 11/18/16 11/19/16 11/20/16 05:59 05:59 05:59 Intake Total 3855 1130 Output Total 3385 2325 Balance 470 -1195 Physical Exam - Physical Exam General Appearance: alert, no apparent distress EENT: PERRL/EOMI, normal ENT inspection, pharynx normal, TMs normal Neck: non-tender, full range of motion, supple, normal inspection Respiratory: crackles (right base), prolonged expiration, No respiratory distress, No wheezing Cardiac/Chest: normal peripheral pulses, regular rate, rhythm Peripheral Pulses: 2+: carotid (R), carotid (L), femoral (R), femoral (L), dorsalis-pedis (R), dorsalis-pedis (L) Abdomen: normal bowel sounds, non-tender, soft Pelvic Exam: deferred Rectal: deferred Skin: normal color, warm/dry Extremities: normal range of motion, non-tender, normal inspection, normal capillary refill Neuro/Psych: no motor/sensory deficits, alert, normal mood/affect, oriented x 3 ICD10 Worksheet Patient Problems: Problems Problem Status Onset Lung cancer Acute
--- NOTE | 2016-11-19 09:48 | SOAPPROG ---
SOAP Progress Note Assessment/Plan: Assessment/Plan: 55 Y F s/p RUL lobectomy. POD#6. PNA. COPD. Fever overnight. Continue IV abx, pulm toilet/RT, IS. Patient has been more mobile since yesterday. Appreciate pulm/sample display preparer input. Chest tube drainage down. No air leak. Likely remove today--will d/w Dr. Pollard first. Epidural d/c'ed. Pain worse now but tolerable/controlled. D/c vazquez catheter. Smoking cessation. Cont nicotine lozenges. Bowel protocol. Lovenox. S: No SOB. Increased pain since epidural removal, but doing ok. O: gen: alert nad oob in chair heent: mmm chest: ctab--no crackles, improved cor: rrr abd: soft Wounds: inc cdi c tommy, no erythema no air leak 11/19/16 09:44 Objective: Vital Signs Temp Pulse Resp BP Pulse Ox 36.3 C 65 17 113/53 L 98 11/19/16 07:50 11/19/16 07:50 11/19/16 07:50 11/19/16 07:50 11/19/16 07:50 Laboratory Results 11/16/16 04:21 11/17/16 03:50 11/18/16 11/19/16 11/20/16 05:59 05:59 05:59 Intake Total 3855 1130 Output Total 4055 6542 Balance 470 -9363 ICD10 Worksheet Patient Problems: Problems Problem Status Onset Lung cancer Acute
[2016-11-19] MEDS: HYDROmorphONE/DILAUDID 1 MG/ML SYR IVP PRN (11:58)
[2016-11-20] MEDS: HYDROmorphONE/DILAUDID 1 MG/ML SYR IVP PRN (03:21)
[2016-11-20] MEDS: ALBUTEROL 3 ML DEYVIAL IH SCH ×4 (05:20→20:18)
--- NOTE | 2016-11-20 08:31 | SOAPPROG ---
SOAP Progress Note Assessment/Plan: Assessment: FEVER TODAY IS CONCERNING WITH HER SMOKING HISTORY AND CHANGES ON HER CHEST X- RAY. NO OTHER MAJOR SOURCES OF INFECTION ARE LIKELY AT THIS TIME SHE IS NOT MOVING MUCH DESPITE HAVING AN EPIDURAL FOR PAIN CONTROL Plan: FOLLOW-UP CHEST X-RAY / CULTURES / ANTIBIOTICS / CONTINUE VIGOROUS PULMONARY CARE 11/17/16 20:45 11/20/16 08:30 AFEBRILE NOW / CHEST TUBES REMOVED / CHEST X-RAY YESTERDAY STILL SHOWS SOME MIDDLE LOBE ATELECTASIS / PATH SHOWS NEGATIVE NODES, A LESS THAN 1 CM ADENOCARCINOMA, AND A SEPARATE 0.3 CM CARCINOID / OVERALL IMPROVING Objective: Vital Signs Temp Pulse Resp BP Pulse Ox 37.1 C 84 18 117/60 97 11/20/16 07:56 11/20/16 07:56 11/20/16 07:56 11/20/16 07:56 11/20/16 07:56 Laboratory Results 11/16/16 04:21 11/17/16 03:50 11/19/16 11/20/16 11/21/16 05:59 05:59 05:59 Intake Total 1130 Output Total 1751 2200 Balance -1195 -2200 ICD10 Worksheet Patient Problems: Problems Problem Status Onset Lung cancer Acute
[2016-11-20] MEDS: NICOTINE 14 MG/24 HR PATCH TD SCH (09:23)
[2016-11-20] MEDS: MULTIVITAMIN PO SCH (09:26)
[2016-11-20] MEDS: CYCLOSPORINE 0.05% 1 EACH BOX EACHEYE SCH (09:27)
[2016-11-20] MEDS: VIT C 500 MG PO SCH (09:27)
[2016-11-20] MEDS: NICOTINE SL PRN ×2 (09:28→21:11)
[2016-11-20] MEDS: SENNOSIDES/DOCUSATE SODIUM TAB PO SCH ×2 (09:29→20:59)
[2016-11-20] MEDS: ENOXAPARIN 40 MG/0.4 ML SYR SC SCH (09:35)
[2016-11-20] MEDS: HYDROCODONE/APAP 5/325 TAB PO PRN ×4 (11:02→21:00)
[2016-11-20] MEDS: ONDANSETRON 4 MG/2 ML VIAL IVP PRN (11:02)
[2016-11-20] MEDS: ERTAPENEM 1 GM in NS 100 ML IV SCH (11:04)
[2016-11-20] MEDS: diphenhydrAMINE 25 MG CAP PO PRN (18:46)
[2016-11-20] MEDS: ALPRAZolam 0.25 MG TAB PO PRN (20:59)
[2016-11-21] MEDS: ALPRAZolam 0.25 MG TAB PO PRN ×2 (02:28→22:18)
[2016-11-21] MEDS: ALBUTEROL 3 ML DEYVIAL IH SCH ×5 (05:54→21:06)
[2016-11-21] MEDS: diphenhydrAMINE 25 MG CAP PO PRN ×2 (06:19→21:21)
[2016-11-21 08:16] LABS: % IMMATURE GRANULYOCYTES 0.6 % (0.0-1.1); ABSOLUTE IMMATURE GRANULOCYTES 0.05 10^3/uL (0.00-0.10); ADD DIFF? NO; ADD MORPH? NO; ADD SCAN? NO; ATYPICAL LYMPHOCYTE FLAG 20 (0-99); FRAGMENT RBC FLAG 0 (0-99); HEMATOCRIT 27.9 % (38.0-47.0); HEMOGLOBIN 9.4 g/dL (12.6-16.3); LEFT SHIFT FLG 0 (0-99); LIPEMIA HEMOLYSIS FLAG 80 (0-99); MEAN CELL HEMOGLOBIN 31.8 pg (27.9-34.1); MEAN CELL HEMOGLOBIN CONCENTR. 33.7 g/dL (32.4-36.7); MEAN CELL VOLUME 94.3 fL (81.5-99.8); MEAN PLATELET VOLUME 9.1 fL (8.7-11.7); PLATELET CLUMPS FLAG 0 (0-99); PLATELET COUNT 297 10^3/uL (150-400); RED BLOOD CELL COUNT 2.96 10^6/uL (4.18-5.33); RED CELL DISTRIBUTION WIDTH 13.2 % (11.5-15.2)
[2016-11-21 09:14] LABS: ANION GAP 8 mEq/L (8-16); CARBON DIOXIDE 28 mEq/l (22-31); CHLORIDE 99 mEq/L (97-110); CREATININE 0.6 mg/dL (0.6-1.0); GLOMERULAR FILTRATION RATE > 60; GLUCOSE 115 mg/dL (70-100); POTASSIUM 4.4 mEq/L (3.5-5.2); SODIUM 135 mEq/L (134-144)
[2016-11-21] MEDS: ERTAPENEM 1 GM in NS 100 ML IV SCH (10:05)
[2016-11-21] MEDS: ENOXAPARIN 40 MG/0.4 ML SYR SC SCH (10:06)
[2016-11-21] MEDS: NICOTINE 14 MG/24 HR PATCH TD SCH ×2 (10:06→10:12)
[2016-11-21] MEDS: CYCLOSPORINE 0.05% 1 EACH BOX EACHEYE SCH (10:07)
[2016-11-21] MEDS: MULTIVITAMIN PO SCH (10:08)
[2016-11-21] MEDS: VIT C 500 MG PO SCH (10:08)
--- NOTE | 2016-11-21 10:09 | SOAPPROG ---
SOAP Progress Note Assessment/Plan: Assessment: 55yo female s/p R upper lobe lobectomy, cancer positive, margins clear. Negative nodes. tolerating regular diet, walked yesterday, pain well controlled PE awake alert comfortable Chest CTA B/L, chest tube site dry bandage, bandage not fully removed abdomen soft nontender CXR appears improved Plan: possible d/c today or Thursday, will discuss with Dr Pollard, discussed with pt, family who feel comfortable with her going home today. 11/14/16 13:05 11/21/16 10:06 Objective: Vital Signs Temp Pulse Resp BP Pulse Ox 36.6 C 74 18 120/53 L 97 11/21/16 07:55 11/21/16 07:55 11/21/16 07:55 11/21/16 07:55 11/21/16 07:55 Microbiology 11/17/16 19:02 Urine Culture - Final Urine,Clean Catch Escherichia Coli Two [place] Types Laboratory Results 11/21/16 07:46 11/21/16 07:46 11/20/16 11/21/16 11/22/16 05:59 05:59 05:59 Output Total 2200 700 Balance -2200 -700 ICD10 Worksheet Patient Problems: Problems Problem Status Onset Lung cancer Acute - ICD10 Problem Qualifiers (1) Lung cancer Qualifiers: Laterality: L Lung location: L
[2016-11-21] MEDS: SENNOSIDES/DOCUSATE SODIUM TAB PO SCH ×2 (10:12→21:16)
[2016-11-21] MEDS: HYDROCODONE/APAP 5/325 TAB PO PRN ×3 (12:17→21:21)
[2016-11-21] MEDS: fentaNYL 75 MCG PATCH TD SCH (12:19)
[2016-11-21] MEDS: HYDROCORTISONE 1% CREAM TP SCH (21:01)
[2016-11-22] MEDS: ALBUTEROL 3 ML DEYVIAL IH SCH (05:27)
[2016-11-22] MEDS: HYDROCODONE/APAP 5/325 TAB PO PRN ×3 (05:57→13:22)
[2016-11-22 08:07] VITALS: BP 115/55; PULSE 71; RESP 18; TEMP 98.1
[2016-11-22] MEDS: ENOXAPARIN 40 MG/0.4 ML SYR SC SCH (08:58)
[2016-11-22] MEDS: ERTAPENEM 1 GM in NS 100 ML IV SCH ×2 (08:59→10:42)
[2016-11-22] MEDS: VIT C 500 MG PO SCH (09:01)
[2016-11-22] MEDS: SENNOSIDES/DOCUSATE SODIUM TAB PO SCH (09:01)
[2016-11-22] MEDS: NICOTINE 14 MG/24 HR PATCH TD SCH (09:01)
[2016-11-22] MEDS: MULTIVITAMIN PO SCH (09:02)
[2016-11-22] MEDS: NICOTINE SL PRN ×3 (09:18→15:57)
--- NOTE | 2016-11-22 10:23 | SOAPPROG ---
SOAP Progress Note Assessment/Plan: Assessment: s/p right upper lobectomy Doing well CXR stable - some middle lobe atelectasis May dc home S: Feeling well. Has rash O: Papular rash on back Dressing intact Lungs decreased at bases but good effort Regular rate Plan: 11/22/16 10:22 Objective: Vital Signs Temp Pulse Resp BP Pulse Ox 36.7 C 71 18 115/55 L 92 11/22/16 08:05 11/22/16 08:05 11/22/16 08:05 11/22/16 08:05 11/22/16 08:05 Laboratory Results 11/21/16 07:46 11/21/16 07:46 11/21/16 11/22/16 11/23/16 05:59 05:59 05:59 Intake Total 1450 Output Total 700 2800 Balance -700 -1350 ICD10 Worksheet Patient Problems: Problems Problem Status Onset Lung cancer Acute
[2016-11-22 11:04] VITALS: O2SAT 87
[2016-11-22] MEDS ORDERED: ONDANSETRON DISINTEGRATING 4 MG TAB PO PRN (12:37)
[2016-11-22] MEDS: CYCLOSPORINE 0.05% 1 EACH BOX EACHEYE SCH (13:04)
[2016-11-22] MEDS: HYDROCORTISONE 1% CREAM TP SCH (13:05)
--- NOTE | 2016-11-25 07:31 | GDS ---
[f rep st] DISCHARGE SUMMARY REASON FOR ADMISSION: Surgery for lung cancer. OTHER PERTINENT DIAGNOSES: Chronic obstructive pulmonary disease, anemia, atelectasis versus pneumo chi. HOSPITAL COURSE: The patient is a 55-year-old female who was noted to have a changing lung mass ove r the last 6 months and elected to undergo surgery by Dr. Pollard on 11/13/2016, thoracoscopy and wedg e biopsy of right upper lobe, thoracotomy and right upper lobe lobectomy, and hilar lymphadenectomy. Pathology from the surgery yielded adenocarcinoma with negative margins and negative lymph nodes. Hospital course was remarkable for chest tube removal which was done without difficulty. Also alise rkable for some atelectasis, but patient did not require home oxygen and was doing quite well at the time of discharge. DISCHARGE INSTRUCTIONS: She was encouraged to use incentive spirometer home with followup in our of [facility] next week. She was instructed to remove dressings in 2 days, and shower over her incisions and then cover as needed. The patient will call our office at , and follow up in 7 days. /[id number]/MODL
== END 2016-11-22 17:00 | disposition home or self-care (01) | DRG 165 ==
LOC: F3E 08:43 → F2N 17:11 → F1N 11-19 14:42
PROVIDERS: ADMIT Surgery; ATTEND Surgery
PROC: 0BBC0ZX Excision of Right Upper Lung Lobe, Open Approach, Diagnostic (ICD-10-PCS; principal; 2016-11-13 12:06)
PROC: 07B70ZX Excision of Thorax Lymphatic, Open Approach, Diagnostic (ICD-10-PCS; principal; 2016-11-13 12:06)
DX: C34.11 Malignant neoplasm of upper lobe, right bronchus or lung (principal); J44.9 Chronic obstructive pulmonary disease, unspecified; Z72.0 Tobacco use; K21.9 Gastro-esophageal reflux disease without esophagitis; D64.9 Anemia, unspecified; Z53.32 Thoracoscopic surgical procedure converted to open procedure
CPT/HCPCS: 97116-GP; 97163-GP; 97165-GO; 97530-GP; 97535-GO; J0690; J1100; J1170; J1200; J1335; J1650; J1885; J2001; J2250; J2405; J2704; J3010

== ENCOUNTER → 2016-11-28 | Outpatient (CLI) | payer MEDICAID | LOC: FIMAGING 13:04 | PROVIDERS: ATTEND Surgery | DX: R06.02 Shortness of breath (principal); Z90.2 Acquired absence of lung [part of] ==

== ENCOUNTER → 2016-12-10 | Outpatient (CLI) | payer MEDICAID | LOC: FIMAGING 15:20 | PROVIDERS: ATTEND Surgery | DX: J94.8 Other specified pleural conditions (principal); Z85.118 Personal history of other malignant neoplasm of bronchus and lung ==

== ENCOUNTER 2016-12-23 12:10 | Emergency (ER) | payer MEDICAID ==
[2016-12-23 12:25] VITALS: BP 137/72; PULSE 87; RESP 20; TEMP 98.4; O2SAT 97
--- NOTE | 2016-12-23 13:27 | UCPHY ---
H & P Time Seen by Provider: 12/23/16 12:41 Patient Type: Established HPI/ROS: HPI Left shoulder pain. 48-year-old female by private vehicle. This patient reports that she was walking up a hill that had some wet leaves on it. She slipped, fell forward and onto her left shoulder. She complains of left shoulder pain x2 days shunt she fell. She reports she took ibuprofen this morning as well as hydrocodone and has not had much relief. She reports the pain is worse with movement. The pain radiates up into the left trapezius as well. She reports her right shoulder has been hurting some as well but not as bad as the left shoulder. She denies any other complaint or injury. ROS: Constitutional: No fever, no chills. No weakness. Eyes: No discharge. No changes in vision. ENT: No sore throat. No nasal congestion or rhinorrhea. Respiratory: No cough. No shortness of breath. Cardiac: No chest pain, no palpitations. Gastrointestinal: No abdominal pain, no vomiting, no diarrhea. Genitourinary: No hematuria. No dysuria or increased frequency with urination. Musculoskeletal: No back pain. No neck pain. As above. Skin: No rashes. Neurological: No headache. No focal weakness or altered sensation. Past medical history: Right-sided lobectomy. Chronic pain. Social history: Here by herself. Nonsmoker. Physical Exam: General Appearance: Alert, no distress. This patient is responding to questions appropriately and in full sentences. This patient appears well- hydrated and well-nourished. Head: Normocephalic atraumatic. Face: Facial bones are stable on palpation. Eyes: Pupils equal and round and reactive to light, no pallor or injection. No lid erythema or edema. ENT, Mouth: Mucous membranes moist. Dentition is intact. No malocclusion of the jaw. No tongue lacerations or abrasions. Pharynx is clear. The bilateral nasal canals are clear. No septal hematoma. Respiratory: There are no retractions, lungs are clear to auscultation with good air movement bilaterally. Chest wall is stable to AP and lateral palpation. Cardiovascular: Regular rate and rhythm. No murmur. Gastrointestinal: Abdomen is soft and nontender, no masses, bowel sounds normal. Neurological: Motor sensory function is intact. Cranial nerves are normal. Cerebellar function intact. Skin: Warm and dry, no rashes. No lacerations, abrasions or contusions. Musculoskeletal: Neck is supple and nontender. The trachea is midline. No midline cervical, thoracic, lumbar or sacral tenderness on palpation. No flank tenderness on palpation. Left shoulder exam: No evidence of gross deformity. No pain on palpation over the AC joint. No pain on palpation over the proximal humerus. Mild and vague pain over the lateral aspect of the left shoulder. Left upper extremity is neurovascularly intact. Axillary nerve distribution intact. No asymmetric swelling in comparison to the right upper extremity. The glenohumeral joint appears intact. She is able to flex and extend the shoulder actively and raise it overhead. Other than noted, extremities are symmetrical, full range of motion. All joints in the bilateral upper and bilateral lower extremities range without pain or impingement other than noted. No tenderness on palpation of the long bones in the bilateral upper and bilateral lower extremities other than noted. Psychiatric: No agitation. No depression. Database: EKG: Imaging: Left shoulder x-ray series: Negative for fracture, subluxation, dislocation. Interpreted by me. Procedures: Emergency department course: She is driving. Her vital signs have been reviewed. She will be sent for a left shoulder series x-ray. She was given 600 mg of ibuprofen. 2:00 p.m., patient re-evaluated. Resting comfortably at this time. Results of her x-rays were discussed with her. I explained that she may have damaged her rotator cuff. I discussed orthopedic follow-up with possible MRI of her left shoulder to evaluate for rotator cuff injury. She feels comfortable with this plan. Her presentation is not consistent with an acute coronary syndrome. I do not suspect any other significant traumatic injury. She feels comfortable going home. Follow-up and return to emergency department precautions reviewed. All of her questions were answered. She was discharged in good condition. Differential Diagnosis: The differential diagnosis on this patient includes but is not limited to left shoulder sprain. Fracture, subluxation, dislocation, acute coronary syndrome, cervical spine injury unlikely. This represents a partial list of diagnoses considered. These considerations are based on history, physical exam, past history, reassessment and diagnostic testing. Smoking Status: Former smoker Constitutional: Initial Vital Signs Temperature (C) 36.9 C 12/23/16 12:24 Heart Rate 87 12/23/16 12:24 Respiratory Rate 20 12/23/16 12:24 Blood Pressure 137/72 H 12/23/16 12:24 O2 Sat (%) 97 12/23/16 12:24 O2 Delivery Mode Room Air Allergies/Adverse Reactions: varenicline tartrate [From Chantix] Allergy (Verified 11/11/16 11:42) Home Medications: Medication Instructions Recorded ALPRAZolam [Xanax 0.5 MG (*)] 0.5 mg PO Q8H PRN 11/07/16 Ascorbic Acid [Vitamin C 500 mg 1,000 - 1,500 mg PO DAILY 11/07/16 (*)] LORazepam [Ativan (*)] 0.5 mg PO HS 11/07/16 Multivitamins [Multivitamin (*)] 1 each PO DAILY 11/07/16 cycloSPORINE 0.05% [Restasis Opht 1 drop EACHEYE DAILY 11/07/16 Drops(*)] Acetaminophen [Tylenol 325mg (*)] 325 - 650 mg PO Q4HRS PRN #0 tab 11/22/16 Hydrocodone/APAP 5/325 [[place] 1 - 2 tab PO Q4HRS PRN #0 tab 11/22/16 5/325 (*)] Hydrocortisone 1% [Hydrocortisone 1 enrique TP BID #0 cream 11/22/16 1% cream (*)] Sennosides/Docusate Sodium 1 - 2 tab PO BID #0 tab 11/22/16 [Senokot-S] diphenhydrAMINE [Benadryl 25 MG 25 - 50 mg PO Q6HRS PRN #0 cap 11/22/16 (*)] fentaNYL [Duragesic 75 MCG Patch 75 mcg TD Q3D #0 patch 11/22/16 (*)] levOFLOXACIN [levAQUIN (*)] 500 mg PO DAILY 5 Days 11/22/16 Departure - Departure Disposition: Home, Routine, Self-Care Clinical Impression: Injury of left shoulder, Left shoulder strain Condition: Good Instructions: Shoulder Sprain (ED) Additional Instructions: Read and follow provided instructions. Follow-up with Orthopedics, in 2-3 days for re-evaluation. I will provide you with 2 different options for an residential support specialist. Your primary care physician can also recommended residential support specialist. Continue ibuprofen as directed as well as her pain medication as prescribed. Return to the emergency department for worsening pain, loss of sensation or weakness in your left upper extremity, discoloration, swelling or other serious concerns. Referrals: Kayy Noe MD [Primary Care Provider] - As per Instructions Van Corado MD [Medical Doctor] - As per Instructions Zee Persaud MD [Medical Doctor] - As per Instructions - PQRS PQRS Measurement: 134: Depression screening and followup, PRIME MD-PHQ2 (12 years and older) Over the last 2 weeks, how often have you been bothered by any of the following problems? 1. Feeling down, depressed, or hopeless? 2. Little interest or pleasure in doing things? Answered no to both questions. 130: Documentation of medications. Reviewed all patient medications, doses, route and frequency. 226: Do you smoke? No. 47: 65 and older: Advanced care planning. Patient designates surrogate decision maker as family. 51: 18 years old and older with diagnosis of COPD, spirometry performance. NA 52: 18 years old and older with COPD and symptoms of COPD or FEV1<60% predicted prescribed a B Agonist. NA
== END 2016-12-23 14:21 | disposition home or self-care (01) ==
LOC: CED 12:10
DX: S43.402A Unspecified sprain of left shoulder joint, initial encounter (principal); W18.30XA Fall on same level, unspecified, initial encounter; Y93.01 Activity, walking, marching and hiking; Y92.89 Other specified places as the place of occurrence of the external cause
CPT/HCPCS: 73030-PO; 99214-PO; G0463-PO

== ENCOUNTER → 2017-03-19 | Outpatient (CLI) | payer MEDICAID | LOC: CIMAGING 17:34 | PROVIDERS: ATTEND Family Medicine | DX: N83.201 Unspecified ovarian cyst, right side (principal) | CPT/HCPCS: 76856-PO ==

== ENCOUNTER 2017-06-17 07:25 | Day surgery (SDC) | payer MEDICAID ==
[2017-06-17] MEDS ORDERED: NS 1,000 ML IV ONE (07:29)
[2017-06-17] MEDS ORDERED: diphenhydrAMINE 25 MG CAP PO ONE (07:29)
[2017-06-17] MEDS ORDERED: ASPIRIN EC 325 MG TAB PO ONE (07:29)
[2017-06-17] MEDS ORDERED: FAMOTIDINE 20 MG TAB PO ONE (07:29)
[2017-06-17] MEDS ORDERED: DIAZEPAM 5 MG TAB PO ONE (07:29)
--- NOTE | 2017-06-17 07:56 | CPEKG ---
Heart Rate: 57 RR Interval: 1053 P-R Interval: 156 QRSD Interval: 82 QT Interval: 396 QTC Interval: 386 P [place]: 6 QRS [place]: 3 T Wave [place]: 44 EKG Severity - NORMAL ECG - EKG Impression: SINUS RHYTHM Electronically Signed By: Jag Lynch 17-Jun-2017 08:44:55
[2017-06-17 08:10] LABS: % IMMATURE GRANULYOCYTES 0.3 % (0.0-1.1); ABSOLUTE IMMATURE GRANULOCYTES 0.02 10^3/uL (0.00-0.10); ADD DIFF? NO; ADD MORPH? NO; ADD SCAN? NO; ATYPICAL LYMPHOCYTE FLAG 0 (0-99); FRAGMENT RBC FLAG 0 (0-99); HEMATOCRIT 42.3 % (38.0-47.0); HEMOGLOBIN 14.3 g/dL (12.6-16.3); LEFT SHIFT FLG 0 (0-99); LIPEMIA HEMOLYSIS FLAG 90 (0-99); MEAN CELL HEMOGLOBIN 30.9 pg (27.9-34.1); MEAN CELL HEMOGLOBIN CONCENTR. 33.8 g/dL (32.4-36.7); MEAN CELL VOLUME 91.4 fL (81.5-99.8); MEAN PLATELET VOLUME 8.8 fL (8.7-11.7); PLATELET CLUMPS FLAG 10 (0-99); PLATELET COUNT 230 10^3/uL (150-400); RED BLOOD CELL COUNT 4.63 10^6/uL (4.18-5.33)
[2017-06-17 08:19] LABS: PROTIME(PATIENT) 13.1 SEC (12.0-15.0)
[2017-06-17 08:23] LABS: ANION GAP 12 mEq/L (8-16); CALCIUM 9.6 mg/dL (8.5-10.4); CARBON DIOXIDE 24 mEq/l (22-31); CHLORIDE 105 mEq/L (97-110); CHOLESTEROL 216 mg/dL (140-220); CREATININE 0.9 mg/dL (0.6-1.0); GLOMERULAR FILTRATION RATE > 60; GLUCOSE 90 mg/dL (70-100); HIGH DENSITY LIPOPROTEIN 90 mg/dL (40-85); LOW DENSITY LIPOPROTEIN 108 mg/dL (80-100); MAGNESIUM 1.8 mg/dL (1.6-2.3); NON-HIGH DENSITY LIPOPROTEIN 126 mg/dL (90-129); POTASSIUM 4.2 mEq/L (3.5-5.2); SODIUM 141 mEq/L (134-144); TRIGLYCERIDE 90 mg/dL (35-135); VERY LOW DENSITY LIPOPROTEINS 18 mg/dL (8-25)
--- NOTE | 2017-06-17 08:37 | PDHPUP ---
History & Physical Update H&P update statement: This history and physical update is based on an assessment of the patient which was completed after admission or registration (within 24 hours), but prior to the surgery/procedure. H&P update: H&P reviewed & patient examined, no change in patient's condition since H&P completed
--- NOTE | 2017-06-17 08:37 | PDPROPOC ---
Sedation Plan of Care Sedation Plan of Care: vital signs stable, mental status noted, patient educated of risks, benefits, alternatives, patient can tolerate sedation ASA Classification: ASA 2 Planned drugs: fentanyl, midazolam Mallampati Score: Class 2 Mallampati Reference Image: Patient passed 3-3-2 rule?: Yes
[2017-06-17] MEDS ORDERED: LIDOCAINE 1% 300 MG/30 ML SDV ONE (08:40)
[2017-06-17] MEDS ORDERED: fentaNYL 100 MCG/2 ML INJ ONE ×2 (08:41→09:32)
[2017-06-17] MEDS ORDERED: IOPAMIDOL (ISOVUE-370) 150 ML BTL IV ONE (08:41)
[2017-06-17] MEDS ORDERED: MIDAZOLAM 2 MG/2 ML VIAL ONE (08:41)
[2017-06-17] MEDS ORDERED: ONDANSETRON 4 MG/2 ML VIAL IVP PRN (10:01)
[2017-06-17] MEDS ORDERED: ATROPINE SULFATE 1 MG/10 ML SYR IVP PRN (10:01)
[2017-06-17] MEDS ORDERED: NITROGLYCERIN 0.4 MG BTL SL PRN (10:01)
--- NOTE | 2017-06-17 10:15 | CPIP ---
[f rep st] INVASIVE CARDIAC PROCEDURE DATE OF PROCEDURE: 06/17/2017 PROCEDURE PERFORMED: 1. Coronary angiography. 2. Left ventriculography. INDICATION: 1. Dyspnea on exertion concerning for class 3 anginal equivalent. 2. Abnormal stress test with reproduction of symptoms, ST-segment depression, and normal myocardial perfusion. ACCESS: The patient was prepped and draped in the sterile fashion. 1% lidocaine was used to anesthe tize the right inguinal region. A 6-[place] introducer sheath was placed selectively into the right c ommon femoral artery via modified Seldinger technique. CORONARY ANGIOGRAPHY: A 6-[place] JL4 catheter was advanced to the left main coronary artery and imag es obtained. The left main coronary artery bifurcated into an LAD and circumflex coronary arteries. The left main coronary artery appeared normal. The left anterior descending coronary artery had a s erasto, discrete, 40% to 50% stenosis in the proximal segment. The remainder of the vessel was free o f any significant disease. The circumflex coronary artery is a large vessel but was nondominant. Ci rcumflex coronary artery had a proximal 10% stenosis present. A 6-[place] no-torque right catheter wa s used to engage the right coronary artery. The right coronary artery appeared normal. LEFT VENTRICULOGRAPHY: A 6-[place] pigtail catheter was advanced in the left ventricle and images obt ained. Left ventricle is normal in size, had normal systolic function. Estimated ejection fraction was 65%. COMPLICATIONS: None. CONCLUSIONS: 1. Mild to moderate coronary artery disease. 2. Normal left ventricular size and systolic function. 3. Plan is for medical management. /[id number]/MODL
[2017-06-17] MEDS ORDERED: ACETAMINOPHEN 650 MG/20.3 ML UDCUP PO ONE (11:15)
== END 2017-06-17 12:30 | disposition home or self-care (01) ==
LOC: FCATH 07:25
PROVIDERS: ATTEND Internal Medicine Cardiovascular Disease
PROC: B2111ZZ Fluoroscopy of Multiple Coronary Arteries using Low Osmolar Contrast (ICD-10-PCS; principal; 2017-06-17)
PROC: 4A023N7 Measurement of Cardiac Sampling and Pressure, Left Heart, Percutaneous Approach (ICD-10-PCS; principal; 2017-06-17)
PROC: B2151ZZ Fluoroscopy of Left Heart using Low Osmolar Contrast (ICD-10-PCS; principal; 2017-06-17)
DX: I25.110 Atherosclerotic heart disease of native coronary artery with unstable angina pectoris (principal); R06.09 Other forms of dyspnea; R94.39 Abnormal result of other cardiovascular function study; C34.11 Malignant neoplasm of upper lobe, right bronchus or lung; J44.9 Chronic obstructive pulmonary disease, unspecified; F41.8 Other specified anxiety disorders; Z91.5 Personal history of self-harm; E78.5 Hyperlipidemia, unspecified
CPT/HCPCS: C1760; J1644; J2250; J3010; Q9967

== ENCOUNTER → 2017-10-07 | Outpatient (CLI) | payer MEDICAID | LOC: FIMAGING 11:50 | PROVIDERS: ATTEND Family Medicine | DX: M51.36 Other intervertebral disc degeneration, lumbar region (principal); M51.37 Other intervertebral disc degeneration, lumbosacral region ==

== ENCOUNTER → 2017-10-12 | Outpatient (CLI) | payer MEDICAID | LOC: BRMIMAGING 13:25 | PROVIDERS: ATTEND Family Medicine | DX: Z13.820 Encounter for screening for osteoporosis (principal); M85.88 Other specified disorders of bone density and structure, other site ==

== ENCOUNTER → 2017-10-28 | Outpatient (CLI) | payer MEDICAID | LOC: CIMAGING 16:43 | PROVIDERS: ATTEND Family Medicine | DX: N83.201 Unspecified ovarian cyst, right side (principal) | CPT/HCPCS: 76856-PO ==

== ENCOUNTER 2017-12-16 05:47 | Day surgery (SDC) | payer MEDICAID ==
--- NOTE | 2017-12-15 18:47 | GHP ---
[f rep st] PREOP HISTORY AND PHYSICAL DATE OF ADMISSION: 12/16/2017 PLANNED DATE OF SURGERY: 12/16/2017 at 7:15 a.m. SURGERY TO BE PERFORMED: Laparoscopic bilateral salpingo-oophorectomy. Surgeon will be Ofelia Worthington MD. Panel Installer will be Carmen Davila MD. PREOPERATIVE DIAGNOSIS: Complex right ovarian cyst and pelvic pain in a postmenopausal female. HISTORY OF PRESENT ILLNESS: Cleopatra is a 57-year-old 2, para 2-0-0-2, who presented complaini ng of increasing right lower quadrant pain in her lower adnexal area that is increasing over the last 3-4 months. The pain waxes and wanes without a pattern to it. It has been painful enough to interr upt her from sleep, causing her to have difficulties exercising and performing normal activities. Aicha delvalle also has urinary frequency and pressure in her abdomen. She had initially had an evaluation for is pain with an ultrasound ordered by her primary care doctor, first in March 2017. That ultrasound r evealed a right ovarian simple cyst, 2.4 x 2.4 x 2.3 and 2.9 x 2.3 x 1.9 cm. No evidence of torsion. Left ovary was normal. She had increasing pain and she had a repeat ultrasound in October that fan wed the cyst had increased in size to 2.5 x 2.4 x 1.4 cm and had an echogenic nodule, and also she guzman s a right periovarian simple cyst that is approximately 3 cm; that had also increased in size. Also, no evidence of torsion and no evidence of free fluid. The ultrasound appearance looks benign. Shelly ent also had a normal CA-125. I do not feel that this is malignant; however, the patient is having i ncreasing pain due to these cysts. I offered her a surgical evaluation for treatment of pain and for diagnosis, and patient agrees. Because patient is post menopausal, the recommendation is to take bot h ovaries and tubes to prevent any possible malignancy in the future, and she is in agreement with is. PAST MEDICAL HISTORY: Significant for a history of non-small cell lung cancer diagnosed in October 06. She is status post right upper lobectomy. She was cured by surgery. She has not needed chemot herapy or radiation. She is followed by her coach driver and a CT every 6 months. She has normal p ulmonary function tests and normal exercise tolerance with the lobe. Patient was a smoker; she quit with her lung cancer diagnosis a little over year ago. Patient also has some coronary artery disease and hypercholesterolemia, and she does have some calcium in her coronary arteries. She has also bee n followed by a manufacturing engineer supervisor, has normal exercise tolerance tests, and stress tests and EKGs. She guzman s a history of osteopenia and a history of anxiety. Her only surgery is her right upper lobectomy. PAST OBSTETRICAL HISTORY: She had 2 full-term normal spontaneous vaginal deliveries in 1979 in 1990. Both babies are healthy. No history of abnormalities in her pregnancies. PAST GYNECOLOGICAL HISTORY: She is postmenopausal since age 50. Had no significant vasomotor sympto ms so was not treated with hormone replacement therapy. Has had no postmenopausal bleeding. No hist ory of endometriosis or frequent ovarian cysts, and she had used OCPs in the past until she stopped w ith menopause. ALLERGIES: No known drug allergies. CURRENT MEDICATIONS: Include Lipitor 20 mg a day, Xanax 0.05 mg p.r.n. anxiety, baby aspirin, and vi tamins. SOCIAL HISTORY: She is for 35 years. She is now an ex-smoker for the last year. Denies alc ohol, drug use, and any other substances. She has no regular caffeine use. She walks regularly for exercise, and she is not currently working. Her last Pap smear was in April 2016 and was normal. She has no history of abnormal Pap's. No histor y of STDs. Is up to date on mammograms and colonoscopies. REVIEW OF SYSTEMS: Negative except for what was stated above in HPI. FAMILY HISTORY: Patient's father of cancer. He had heart disease and lung disease, as well as alcoholism. Her mother is alive with osteopenia. Grandmother had glaucoma. No other significant [facility] history. OBJECTIVE: VITAL SIGNS: Today, blood pressure is 94/48, weight is 160 pounds. GENERAL: She is a w ell-developed, well-nourished female in no acute distress. LUNGS: Clear to auscultation bilaterally except for her missing breath sounds in the right upper lobe. HEART: Regular rate and rhythm. No murmur. ABDOMEN: Soft, nontender, nondistended. Normal bowel sounds. PELVIC: Normal atrophic kenton margaret. Normal parous cervix. Uterus is anteverted, anteflexed, mobile, and small. There is a fulln ess in her right adnexa and there is pain to palpation. No rebound or guarding. ASSESSMENT AND PLAN: A 57-year-old 2, para 2-0-0-2, with a persistent increasing size in a s imple right ovarian cyst and a nikhil ovarian cyst causing increasing pain, for a laparoscopic bilatera l salpingo-oophorectomy. Patient was consented for the procedure. She understood the risks and bene fits; the risks including bleeding, infection, damage to organs, uterus, tubes, ovaries, bowel, bladd er, nerves, blood vessels, or ureters, need for open procedure, need for additional procedures, espec ially if there is a malignancy diagnosed at this time. /[id number]/MODL
[2017-12-16] MEDS ORDERED: ceFAZolin 2 GM/SWFI 2 GM/20 ML SYR IVP ONE (06:10)
[2017-12-16] MEDS ORDERED: LR 1,000 ML IV ONE (06:11)
[2017-12-16] MEDS ORDERED: BUPIVACAINE/EPI 0.5% 30 ML SDV ONE (06:25)
[2017-12-16] MEDS ORDERED: MIDAZOLAM 2 MG/2 ML VIAL IVP ONE (07:07)
[2017-12-16] MEDS ORDERED: SCOPOLAMINE HYDROBROMIDE 1 MG/3 DAYS PATCH TD ONE (07:08)
--- NOTE | 2017-12-16 07:09 | PDANEPAE ---
ANE Past Medical History - Cardiovascular History Hx Hypertension: No Hx Arrhythmias: No Hx Chest Pain: No Hx Coronary Artery / Peripheral Vascular Disease: Yes Hx CHF / Valvular Disease: No Hx Palpitations: No - Pulmonary History Hx COPD: Yes Hx Asthma/Reactive Airway Disease: Yes Hx Recent Upper Respiratory Infection: No Hx Oxygen in Use at Home: No Hx Sleep Apnea: No Sleep Apnea Screening Result - Last Documented: Negative Pulmonary History Comment: MILD COPD. PULMONARY NODULE - Neurologic History Hx Cerebrovascular Accident: No Hx Seizures: No Hx Dementia: No - Endocrine History Hx Diabetes: No Obesity: mild - Renal History Hx Renal Disorders: No - Liver History Hx Hepatic Disorders: No - Neurological & Psychiatric Hx Hx Neurological and Psychiatric Disorders: Yes Neurological / Psychiatric History Comment: DEPRESSION, PANICK ATTACK, ANXIETY. Raynauds - Cancer History Hx Cancer: Yes Cancer History Comment: lung CA - Congenital Disorder History Hx Congenital Disorders: No - GI History Hx Gastrointestinal Disorders: Yes Gastrointestinal History Comment: reflux,heartburn - Other Health History Other Health History: bite on left leg anterior. catarcts - Chronic Pain History Chronic Pain: Yes (lower back,right knee,right foot bunion) - Surgical History Prior Surgeries: cardiac cath. lung resection ANE Review of Systems Review of Systems: - Exercise capacity METS (RN): 3 METS ANE Patient History - Allergies Allergies/Adverse Reactions: varenicline tartrate [From Chantix] Allergy (Verified 12/07/17 16:15) - Home Medications Home Medications: ALPRAZolam [Xanax 0.5 MG (*)] PO 11/07/16 [Last Taken 12/15/17] Ascorbic Acid [Vitamin C 500 mg (*)] 11/07/16 [Last Taken 06/16/17] Multivitamins [Multivitamin (*)] 11/07/16 [Last Taken 12/09/17] cycloSPORINE 0.05% [Restasis Opht Drops(*)] 11/07/16 [Last Taken 12/09/17] Albuterol [Proventil Inhaler HFA (*)] 06/17/17 [Last Taken Unknown] Aspirin 81mg (*) 06/17/17 [Last Taken 12/08/17] Atorvastatin Calcium 06/17/17 [Last Taken 12/15/17] Fluticasone/Salmeter 250/50Mcg [Advair 250/50 (*)] BID 06/17/17 [Last Taken Unknown] Herbals/Supplements -Info Only 06/17/17 [Last Taken 12/11/17] Sennosides/Docusate Sodium [Senokot-S] 06/17/17 [Last Taken Unknown] traZODone [traZODONE 50MG (*)] 06/17/17 [Last Taken 06/16/17 100mg] Hydroxyzine HCl 12/07/17 [Last Taken 12/15/17] - NPO status NPO Since - Liquids (Date): 12/15/17 NPO Since - Solids (Date): 12/15/17 - Anes Hx Anes Hx: post operative nausea and vomiting - Smoking Hx Smoking Status: Former smoker - Family Anes Hx Family Hx Anesthesia Complications: none ANE Labs/Vital Signs - Vital Signs Blood Pressure: 97/66 Heart Rate: 57 Respiratory Rate: 16 O2 Sat (%): 95 Height: 165.1 cm Weight: 71.214 kg ANE Physical Exam - Airway Mallampati Score: Class 2 Mouth exam: normal dental/mouth exam - Pulmonary Pulmonary: no respiratory distress, no rales or rhonchi - Cardiovascular Cardiovascular: regular rate and rhythym, no murmur, rub, or gallop - ASA Status ASA Status: II ANE Anesthesia Plan Anesthesia Plan: general endotracheal anesthesia
[2017-12-16] MEDS ORDERED: SCOPOLAMINE HYDROBROMIDE 1 MG/3 DAYS PATCH TD SCH (07:15)
[2017-12-16] MEDS ORDERED: fentaNYL 100 MCG/2 ML INJ ONE ×4 (07:19→09:45)
[2017-12-16] MEDS ORDERED: PROPOFOL/EMULSION 500 MG/50 ML BOTTLE IV ONE (07:19)
[2017-12-16] MEDS ORDERED: ONDANSETRON 4 MG/2 ML VIAL ONE ×2 (07:20→10:09)
[2017-12-16] MEDS ORDERED: LIDOCAINE 2% 5 ML SDV ONE ×2 (07:20→08:11)
[2017-12-16] MEDS ORDERED: ROCURONIUM 50 MG/5 ML VIAL ONE (07:20)
[2017-12-16] MEDS ORDERED: DEXAMETHASONE 4 MG/ML VIAL ONE ×2 (07:20)
--- NOTE | 2017-12-16 07:27 | PDHPUP ---
History & Physical Update H&P update statement: This history and physical update is based on an assessment of the patient which was completed after admission or registration (within 24 hours), but prior to the surgery/procedure. H&P update: no change in patient's condition since H&P completed
[2017-12-16] MEDS ORDERED: KETOROLAC 30 MG/1 ML SDV ONE (08:33)
[2017-12-16] MEDS ORDERED: NEOSTIGMINE METHYLSULFATE 3 MG/3 ML SYR ONE (08:37)
[2017-12-16] MEDS ORDERED: GLYCOPYRROLATE 0.2 MG/1 ML VIAL ONE (08:37)
[2017-12-16] MEDS ORDERED: ALBUTEROL 3 ML DEYVIAL IH PRN (08:40)
[2017-12-16] MEDS ORDERED: ONDANSETRON 4 MG/2 ML VIAL IVP PRN (08:40)
[2017-12-16] MEDS ORDERED: PROMETHAZINE HCL 25 MG/ML INJ IVP PRN (08:40)
[2017-12-16] MEDS ORDERED: NALOXONE HCL 0.4 MG/ML INJ IVP PRN (08:40)
[2017-12-16] MEDS ORDERED: ACETAMINOPHEN 500 MG TAB PO PRN (08:40)
[2017-12-16] MEDS ORDERED: LR 500 ML IV PRN (08:40)
[2017-12-16] MEDS ORDERED: HYDROCODONE/APAP 5/325 TAB PO PRN ×2 (08:40→08:50)
[2017-12-16] MEDS ORDERED: IBUPROFEN 200 MG TAB PO PRN (08:50)
--- NOTE | 2017-12-16 08:56 | POSTOPPROG ---
Post Op Note Date of Operation: 12/16/17 Surgeon: Ofelia Worthington Loop Tender: Dr. Carmen Davila Anesthesiologist: Dr. Elvin Matos Anesthesia: GET(General Endotracheal) Pre-op Diagnosis: complex right ovarian cyst Post-op Diagnosis: right paraovarian cyst Indication: pelvic pain Procedure: laparoscopic BSO Inf/Abcess present in the surg proc area at time of surgery?: No Depth: Organ Space EBL: Minimal Total fluids administered: 600 Complications: none Specimen(s): bilateral tubes and ovaries
[2017-12-16] MEDS: fentaNYL 100 MCG/2 ML INJ IVP PRN ×4 (08:58→09:30)
--- NOTE | 2017-12-16 09:10 | POSTANESTH ---
Post Anesthetic Evaluation Cardiovascular Status: Normal, Stable, Similar to Pre-Op Cond Respiratory Status: Normal, Stable, Similar to Pre-op Cond. Level of Consciousness/Mental Status: Can Participate in Eval, Mildly Sleepy, Arousable Pain Control: Inadeq, Add Tx Required Nausea/Vomiting Control: Adequate, Prn Tx Ordered Complications Possibly Related to Anesthesia: None Noted
[2017-12-16] MEDS ORDERED: ALBUTEROL 3 ML DEYVIAL ONE ×2 (09:18→09:45)
--- NOTE | 2017-12-16 10:14 | GOP ---
[f rep st] OPERATIVE REPORT DATE OF OPERATION: 12/16/2017 SURGEON: Ofelia Worthington MD COSMETICS SUPERVISOR: Carmen Davila MD ANESTHESIA: General. ANESTHESIOLOGIST: Elvin Rodriguez MD PREOPERATIVE DIAGNOSIS: Complex right ovarian cyst. POSTOPERATIVE DIAGNOSIS: Complex right periovarian cyst. PROCEDURE PERFORMED: Laparoscopic bilateral salpingo-oophorectomy. FINDINGS: ESTIMATED BLOOD LOSS: For the procedure, 10 mL. DESCRIPTION OF PROCEDURE: Patient was taken to the operating room where she was placed under general anesthesia without difficulty. She was prepped and draped in the dorsal lithotomy position, and a F oley catheter was placed in her bladder. After adequate anesthesia was assured, and a WHO time-out w as performed, an open-sided speculum was placed in the vagina, and a single-tooth tenaculum was used to grasp the anterior lip of the cervix. An acorn uterine manipulator was placed through the cervica l os and attached to the tenaculum. Attention was then turned to the abdominal portion of the procedure. After injection of Marcaine, a 5 mm skin incision was made with a scalpel. A Veress needle was placed through that incision, and th ere was a good drop in pressure upon entry into the peritoneal cavity. A 5 mm Optiview trocar was pl aced under direct visualization into that cavity, and pneumoperitoneum was established. Visualizatio n of the pelvis revealed a normal uterus, a right ovarian cyst, normal left uterus her left ovary, an d no other abnormalities. After injection of Marcaine, a 1 cm skin incision was made in the left low er quadrant, and a trocar was placed under direct visualization, and a 5 mm trocar was placed on the right with the same procedure. The right ovary was elevated. There was noted to be a simple cyst as well as a periovarian cyst in that area. Otherwise, anatomy was normal. Ureters were visualized bi laterally peristalsing normally away from the adnexal complex. The right tube was elevated at the le maggy of the fimbria with care to be close to the ovary and tube and no other structures. Dissection w as performed with the LigaSure. It was cauterized and cut along the mesosalpinx through the infundib ulopelvic ligament, the ovarian vessels, the utero-ovarian ligament, and the fallopian tube, and the adnexa was removed and placed in the posterior cul-de-sac. Identical procedure was performed with th e left, from the fimbriated end along the mesosalpinx to the infundibulopelvic ligament, utero-ovaria n ligament, the tubal complex, and that was also placed in the posterior cul-de-sac. Hemostasis was assured along both pedicles. Ureters were also visualized bilaterally peristalsing after dissection. There was good hemostasis and normal uterus. An EndoCatch bag was placed from the left adnexal port, and the bilateral tubes and ovaries were plac ed in that bag and removed directly. The fascia was closed on the left side with [address] visualization after inspection of the appendix as well as gallbladder. Pneumoperitoneum was allow ed to escape, and the skin incisions were closed with 4-0 Monocryl. The tenaculum and uterine manipu lator were removed, and good hemostasis was assured. Patient tolerated the procedure well. Sponge, lap, needle, and instrument counts were correct x2. Patient went to the recovery room in good condit ion. INDICATION FOR PROCEDURE: Cleopatra is a 57-year-old 2, para 2-0-0-2, who presented complaining of increasing right lower quadrant pelvic pain over the last 3-4 months. The pain waxes and wanes w ithout a pattern to it. It is painful enough to interrupt her from sleep and causing her to have dif ficulties exercising and performing normal activities. She also has urinary frequency and pressure i n her abdomen. Initial evaluation revealed a simple ovarian cyst in March 2017. Followup ultrasound in October 2017 revealed a slightly increasing in size periovarian cyst with an echogenic nodule. Wo rkup included a CA-125 which was normal. We discussed management, and patient opted to have a laparo scopic bilateral salpingo-oophorectomy for diagnosis and treatment of pain. The patient was consente d for the procedure. She understood the risks and benefits; the risks including bleeding, infection, damage to internal organs (uterus, tubes, ovaries, bowel, bladder, nerves, blood vessels, ureters), risk of needing an open procedure, and risk of additional procedures if malignancy is diagnosed. She understood these risks and benefits agreed to proceed. IV FLUID REPLACEMENT: 600 mL. URINE OUTPUT: 75 mL. PATHOLOGIC SPECIMENS: Bilateral tubes and ovaries. /[id number]/MODL
[2017-12-16] MEDS ORDERED: PROMETHAZINE HCL 25 MG/ML INJ ONE (10:24)
--- NOTE | 2017-12-16 13:46 | PDFACE2FAC ---
Face to Face Encounter 1. I certify that this patient is under my care and that I, or a nurse practitioner or physician's assistant program manager working with me, had a jotm-jz-voqx encounter that meets the physician ptrb-ym-npsr encounter requirements with this patient on 12/16/17. 2. I certify that based on my findings, the following services are medically necessary home health services: [X Nursing] [X Physical Therapy] [X Speech-Language Pathology] 3. The medical condition and clinical findings that support the need for specialized skills, knowledge and judgement of the above services are: [COPD, postoperative hypoxia] 4. I certify this patient is homebound* because [the patient's condition restricts their ability to leave their home except with the assistance of another individual or the aid of a supportive device.] I certify that this patient is confined to his/her home and needs intermittent longterm care, physical and/or speech therapy. This patient is under my care and I have authorized home health services. * Homebound is defined by Medicare as follows: absences from home require considerable and tacking effort and or for medical reasons or zoroastrian services or are infrequent or of short duration when for other reasons*.
[2017-12-16 14:22] VITALS: O2SAT 96
--- NOTE | 2017-12-16 14:24 | PDHOMEO2F ---
Home Oxygen Face to Face Home Orders: I certify that a physician or a nurse practitioner or physician's catering administrative assistant has had a mvxx-fw-poub encounter with this patient on the date of this order due to the diagnosis listed, which relates to the primary reason the patient requires home oxygen. Alternative treatments have been tried, or considered, and deemed ineffective. It is anticipated that supplemental oxygen will result in improvement with treatment. Home oxygen qualifying diagnosis: postoperative hypoxia Home oxygen secondary diagnosis: COPD SpO2 on room air (%): 84 Frequency of home oxygen needed: continuous Home oxygen liters per minute: 2 Home oxygen delivery device: nasal cannula Concentrator: No E-tanks for mobility and back up: No If ordering portable O2, is the patient mobile in the home?: Yes I certify that, based on these findings, the home oxygen is medically necessary for this patient for the following length of time. Length of time home oxygen needed: 1 week Home Oxygen Comment: Will need at least overnight. Not be needed thereafter as long as room air oxygen saturation is 90% or above.
[2017-12-16 15:10] VITALS: BP 130/70; PULSE 92; RESP 18; TEMP 98.1
--- NOTE | 2017-12-16 15:31 | PDHOMEO2F ---
Home Oxygen Face to Face Home Orders: I certify that a physician or a nurse practitioner or physician's commercial real estate assistant has had a giwu-mv-hlre encounter with this patient on the date of this order due to the diagnosis listed, which relates to the primary reason the patient requires home oxygen. Alternative treatments have been tried, or considered, and deemed ineffective. It is anticipated that supplemental oxygen will result in improvement with treatment. Home oxygen qualifying diagnosis: Postoperative hypoxia Home oxygen secondary diagnosis: COPD SpO2 on room air (%): 84 Frequency of home oxygen needed: continuous Home oxygen liters per minute: 2 Home oxygen delivery device: nasal cannula Concentrator: Yes E-tanks for mobility and back up: Yes If ordering portable O2, is the patient mobile in the home?: Yes I certify that, based on these findings, the home oxygen is medically necessary for this patient for the following length of time. Length of time home oxygen needed: 1 week (Oxygen needed overnight. Will not be needed thereafter as long as room air oxygen saturation is 90% or above.)
[2017-12-19] MEDS ORDERED: PATCH REMOVAL 1 EA PATCH TD SCH (07:07)
== END 2017-12-16 15:04 | disposition home or self-care (01) ==
LOC: FSGY 05:47
PROVIDERS: ATTEND Obstetrics & Gynecology
DX: N83.201 Unspecified ovarian cyst, right side (principal); R10.2 Pelvic and perineal pain; I25.10 Atherosclerotic heart disease of native coronary artery without angina pectoris; E78.00 Pure hypercholesterolemia, unspecified; J44.9 Chronic obstructive pulmonary disease, unspecified; Z78.0 Asymptomatic menopausal state; Z85.118 Personal history of other malignant neoplasm of bronchus and lung; Z90.2 Acquired absence of lung [part of]; Z87.891 Personal history of nicotine dependence
CPT/HCPCS: J0690; J1100; J1885; J2250; J2405; J2550; J2704; J2710; J3010; J7613

== ENCOUNTER → 2018-02-03 | Outpatient (CLI) | payer MEDICAID | LOC: CIMAGING 12:01 | PROVIDERS: ATTEND Family Medicine | DX: M25.552 Pain in left hip (principal) | CPT/HCPCS: 73502-PO ==

== ENCOUNTER → 2018-04-27 | Outpatient (CLI) | payer OTHER, MEDICAID | LOC: FIMAGING 11:09 | PROVIDERS: ATTEND Internal Medicine Hematology & Oncology | DX: M25.552 Pain in left hip (principal); C34.11 Malignant neoplasm of upper lobe, right bronchus or lung | CPT/HCPCS: 78306; A9503 ==

== ENCOUNTER → 2018-11-04 | Outpatient (CLI) | payer OTHER | LOC: FIMAGING 12:00 ==

== ENCOUNTER → 2018-12-30 | Outpatient (CLI) | payer OTHER | LOC: EMCIMAGING 12:45 | PROVIDERS: ATTEND Internal Medicine Hematology & Oncology | DX: H53.8 Other visual disturbances (principal); C34.11 Malignant neoplasm of upper lobe, right bronchus or lung | CPT/HCPCS: 70553-PN ==